=== PATIENT | female | born 1960 | race Caucasian/White ===

== ENCOUNTER 2020-09-05 15:05 | Emergency (ER) | payer OTHER ==
[~2020-09-05] VITALS: Ht 154.9 cm; Wt 38.6 kg
[2020-09-05 16:04] LABS: ABSOLUTE LYMPHOCYTES 1.9 thou/uL (0.8-5.3); ABSOLUTE MONOCYTES 0.6 thou/uL (0.0-1.2); ABSOLUTE NEUTROPHILS 4.5 thou/uL (1.6-8.1); BASOPHILS 0.6 %; EOSINOPHILS 0.3 %; HEMATOCRIT 45.5 % (37.0-47.0); HEMOGLOBIN 16.1 gm/dL (12.0-15.0); LYMPHOCYTES 26.4 %; MCH 35.4 pg (26.0-34.0); MCHC 35.4 g/dL (28.0-37.0); MONOCYTES 8.9 %; MPV 6.2 fl. (7.2-11.1); NUCLEATED RBCS 0 /100WBC; PLATELET COUNT* 338 thou/uL (150-400); POLYS 63.8 %; RBC 4.55 mil/uL (4.20-5.00); RDW-CV 12.2 % (10.5-14.5); WBC 7.1 thou/uL (4.0-11.0)
[2020-09-05 16:14] LABS: CALCIUM 8.9 mg/dL (8.5-10.1); CREATININE 0.5 mg/dL (0.6-1.3); POTASSIUM 5.1 mmol/L (3.5-5.1)
[2020-09-05 16:25] LABS: ALBUMIN 4.5 g/dL (3.4-5.0); TOTAL BILIRUBIN 0.5 mg/dL (<0.1-1.0); TOTAL PROTEIN 7.3 g/dL (6.4-8.2)
[2020-09-05] MEDS ORDERED: VENTOLIN HFA 1818 GM INH (16:42)
[2020-09-05] MEDS ORDERED: ZPAK PO (16:42)
[2020-09-05] MEDS ORDERED: MEDROLDOSEPACK PO (16:42)
[2020-09-05] MEDS ORDERED: TESSALON PERLE100 MG PO (16:42)
[2020-09-05 17:24] VITALS: BP 137/76
--- NOTE | 2020-09-06 15:25 | EKG ---
[place] [address] ELECTROCARDIOGRAM REPORT Name: MAXWELL REYEZ Room: [facility]#: [id number] Admission: 09/05/20 Attend Phys: Discharge: 09/05/20 Date of : 58 Date of Service: 09/05/20 1547 Report #: [id number] THIS REPORT FOR: //name// [facility] ED Test Date: 2020-09-05 Test Time: 15:47:32 Pat Name: MAXWELL REYEZ Department: Room: Gender: F [employer]: : 1960 Requested By: Cally Crabtree Order Number: [id number] MD: Bishop Ley Measurements Intervals [place] Rate: 87 P: 84 PA: 137 QRS: 81 QRSD: 92 T: 9 QT: 361 QTc: 435 Interpretive Statements Sinus rhythm Biatrial enlargement Borderline right axis deviation nonspeciic st-t changes No previous ECG available for comparison Electronically Signed On 09-06-2020 15:25:12 CDT by Bishop Ley [email or web address] <ELECTRONICALLY SIGNED> By: Bishop Ley MD, [facility] 09/06/20 1525 1547 1547 Bishop Ley MD, [facility] /EPI
[2020-09-08] MEDS ORDERED: CELEXA 20 MG TA20 MG PO (22:09)
[2020-09-08] MEDS ORDERED: CLONAZEPAM 0.50.5 M1 PO (22:09)
== END 2020-09-05 17:26 | disposition home or self-care (01) ==
LOC: M.ERS 15:05
PROVIDERS: Nurse Practitioner Family
DX: J06.9 Acute upper respiratory infection, unspecified (principal); Z20.822 Contact with and (suspected) exposure to COVID-19; J45.909 Unspecified asthma, uncomplicated